=== PATIENT | female | born 1945 | race Caucasian/White ===

== ENCOUNTER → 2017-05-16 | Day surgery (SDC) | payer OTHER ==
[~2017-05-16] MED LIST: DIPRIVAN VIAL 20 ML ONE; EPHEDRINE SULFATE INJ ONE; NS 1000 ML 1,000 ML ONE; XYLOCAINE 2 % (PLAIN) ONE
--- NOTE | 2017-05-16 10:07 | OR.GENERIC ---
Post-Op Note Generic - Post-Op Note Operative Report: Procedure Note May 16, 2017 Pre-Operative Diagnosis: Screening colonoscopy. Post-Operative Diagnosis: 1. Cecal inflammation. 2. Large sigmoid polyp (15 cm). 3. Rectal polyps. 4. Grade I internal hemorrhoids. Procedure: Colonoscopy to cecum with polypectomy (hot snare and cold biopsy forceps). Surgeon: Tony Weiss MD Youth Pastor: Citlalli Deutsch CRNA Specimens: 1. Cecal mucosa. 2. Sigmoid polyp at 15 cm. 3. Rectal polyps. Estimated blood loss: Minimal. Complications: None. Summary: The patient is a 71 year old female who presented for a screening colonoscopy. The risk and benefits of the procedure including difficulty with anesthesia, bleeding, infection, as well as perforation were discussed with the patient. The patient understood these risks and requested the procedure. On May 16, 2017, the patient was brought to the endoscopy suite. A time out was performed verifying the patient and procedure. The patient was placed in a left lateral decubitus position. After satisfactory induction of monitored anesthesia care, a rectal exam was performed. This was normal. Next , an endoscopy was advanced through the anus and directed to the cecum without difficulty. The scope was then withdrawn viewing all mucosal surfaces. The patients prep was adequate. Mild inflammation was noted in the cecum. The mucosa was biopsied using cold biopsy forceps and sent to pathology. No masses or polyps were seen. The ascending, transverse, as well as descending portions of the colon were normal. Specifically, there were no masses, polyps, or diverticula. The scope was withdrawn through the sigmoid portion of the colon. No masses or diverticula were seen. However, a large polyp was noted at 15 cm. This was removed using a snare with cautery. The scope was withdrawn into the rectum. A few polyps were noted. These were removed using cold biopsy forceps and sent to pathology. The scope was retroflexed. Grade I internal hemorrhoids were noted. The scope was straightened and insufflation evacuated. The scope was withdrawn and the procedure terminated. The patient was taken to the recovery room in stable condition. There were no complications.
[2017-05-16 10:20] VITALS: BP 127/75
== END ==
LOC: SURG1 07:22
PROVIDERS: ATTEND Student in an Organized Health Care Education/Training Program
PROC: 0DJD8ZZ Inspection of Lower Intestinal Tract, Via Natural or Artificial Opening Endoscopic (ICD-10-PCS; principal; 2017-05-16 08:30)
PROC: 0DBP8ZX Excision of Rectum, Via Natural or Artificial Opening Endoscopic, Diagnostic (ICD-10-PCS; principal; 2017-05-16 08:30)
PROC: 0DBN8ZX Excision of Sigmoid Colon, Via Natural or Artificial Opening Endoscopic, Diagnostic (ICD-10-PCS; principal; 2017-05-16 08:30)
DX: Z12.11 Encounter for screening for malignant neoplasm of colon (principal); K63.5 Polyp of colon; K62.1 Rectal polyp; K64.0 First degree hemorrhoids; D12.5 Benign neoplasm of sigmoid colon; D12.0 Benign neoplasm of cecum
CPT/HCPCS: 99100; A4217; J2001; J3490

== ENCOUNTER 2024-03-13 10:36 | Inpatient (IN) ==
[2024-03-13 10:52] LABS: ABG BASE EXCESS -0.4 mmol/L (-2.0-2.0); ABG HCO3 22.8 mmol/L (22-26)
[2024-03-13 10:53] LABS: ABG ALLEN TEST POS
--- NOTE | 2024-03-13 10:53 | EKG ---
Test Reason : afib with rvr Blood Pressure : */* mmHG Vent. Rate : 193 BPM Atrial Rate : * BPM P-R Int : * ms QRS Dur : 118 ms QT Int : 234 ms P-R-T Axes : * -88 82 degrees QTc Int : 419 ms Supraventricular tachycardia Left axis deviation Low voltage QRS Right bundle branch block Septal infarct , age undetermined Possible Lateral infarct , age undetermined Abnormal ECG When compared with ECG of 07-FEB-2024 13:17, Vent. rate has increased BY 102 BPM Confirmed by Lance Kwan MD ([id number]) on 03/14/2024 7:52:15 AM Referred By: Confirmed By: Lance Kwan MD
--- NOTE | 2024-03-13 11:07 | EKG ---
Test Reason : chest pain, palpitations Blood Pressure : */* mmHG Vent. Rate : 110 BPM Atrial Rate : * BPM P-R Int : * ms QRS Dur : 92 ms QT Int : 320 ms P-R-T Axes : * -63 98 degrees QTc Int : 433 ms sinus with run of SVT/pvc too Left axis deviation Incomplete right bundle branch block Anterolateral infarct (cited on or before 13-MAR-2024) Abnormal ECG When compared with ECG of 13-MAR-2024 10:49, (Unconfirmed) Vent. rate has decreased BY 83 BPM Incomplete right bundle branch block has replaced Right bundle branch block Questionable change in initial forces of Lateral leads Confirmed by Lance Kwan MD ([id number]) on 03/14/2024 7:49:08 AM Referred By: Confirmed By: Lance Kwan MD
[2024-03-13] MEDS: CARDIZEM INJ 50 MG VIAL IVP ONE (11:11)
[2024-03-13] MEDS: NS 1,000 ML IV 1,000 ML IV SCH (11:22)
[2024-03-13 11:33] LABS: BASOPHILS # (AUTO) 0.1 X10^3/uL (0.0-0.1); BASOPHILS % (AUTO) 0.6 % (0.2-1.0); EOSINOPHILS % (AUTO) 0.1 % (0.9-2.9); HEMATOCRIT 40.3 % (36.0-47.0); LYMPHOCYTES # (AUTO) 0.3 X10^3/uL (1.3-2.9); LYMPHOCYTES % (AUTO) 2.4 % (21.0-51.0); MEAN CORPUSCULAR HEMOGLOBIN 26.2 pg (27.0-34.0); MEAN CORPUSCULAR HGB CONC 32.1 g/dL (33.0-35.0); MEAN CORPUSCULAR VOLUME 81.4 fL (80.0-100.0); MEAN PLATELET VOLUME 8.3 fL (7.4-11.0); MONOCYTES # (AUTO) 0.6 x10^3/uL (0.3-0.8); MONOCYTES % (AUTO) 4.7 % (0.0-13.0); NEUTROPHILS # (AUTO) 12.1 x10^3/uL (2.2-4.8); NEUTROPHILS % (AUTO) 92.2 % (42.0-75.0); PLATELET COUNT 168 X10^3/uL (150.0-450.0); RED BLOOD COUNT 4.95 X10^6/uL (3.5-5.4); RED CELL DISTRIBUTION WIDTH 25.5 % (11.6-16.5); WHITE BLOOD COUNT 13.1 X10^3/uL (3.6-10.0)
[2024-03-13 11:48] LABS: INR 1.33 (0.8-1.3)
[2024-03-13 11:55] LABS: ANISOCYTOSIS 3+; BAND NEUTROPHILS % 3 % (0-10); HYPOCHROMASIA SLIGHT; PLATELET MORPHOLOGY COMMENT NORMAL (NORMAL)
[2024-03-13 11:58] LABS: ALANINE AMINOTRANSFERASE 75 Units/L (12-78); ALBUMIN 3.5 g/dL (3.4-5.0); ALKALINE PHOSPHATASE 257 Units/L (46-116); ASPARTATE AMINO TRANSFERASE 79 Units/L (15-37); BLOOD UREA NITROGEN 10 mg/dL (7-18); CALCIUM 9.1 mg/dL (8.5-10.1); CHLORIDE 101 mmol/L (98-107); COR NA(FOR HYPERGLY) 140 mmol/L (136-145); CREATININE 1.03 mg/dL (0.55-1.02); GLUCOSE 158 mg/dL (65-99); MAGNESIUM 1.5 mg/dL (2.0-2.9); POTASSIUM 4.1 mmol/L (3.5-5.1); SODIUM 139 mmol/L (136-145); TOTAL PROTEIN 7.5 g/dL (6.4-8.2); eGFR NON BLACK RACES 55 (>60)
[2024-03-13] MEDS ORDERED: NS IV PRN (12:12)
[2024-03-13] MEDS ORDERED: MAGNESIUM SULFATE IV PRN (12:12)
[2024-03-13] MEDS: MAGNESIUM SULFATE 50% INJ VIAL 5 G in NS 500 ML IV 500 ML IV ONE (12:37)
[2024-03-13] MEDS ORDERED: OFIRMEV IV 1000 MG VIAL 1,000 MG/100 ML VIAL IV ONE (12:39)
[2024-03-13] MEDS: OFIRMEV IV 1000 MG VIAL 1,000 MG/100 ML VIAL IV PRN (12:40)
[2024-03-13 12:56] LABS: BILIRUBIN,URINE NEGATIVE (NEGATIVE); BLOOD/HEMOGLOBIN,URINE NEGATIVE (NEGATIVE); GLUCOSE, URINE NEGATIVE (NEGATIVE); KETONES,URINE NEGATIVE (NEGATIVE); LEUKOCYTE ESTERASE ,URINE NEGATIVE (NEGATIVE); NITRITES,URINE NEGATIVE (NEGATIVE); PROTEIN,URINE 1+ (NEGATIVE); UROBILINOGEN,URINE NORMAL (NORMAL)
[2024-03-13 13:03] LABS: APPEARANCE,URINE CLEAR (CLEAR); BACTERIA,URINE NEGATIVE /HPF (NEGATIVE); COLOR,URINE STRAW (YELLOW); RBC,URINE 0-2 /HPF (0-3); SQUAMOUS EPITHELIAL CELL,UR FEW /HPF (NEGATIVE)
--- NOTE | 2024-03-13 14:13 | RAD ---
PROCEDURE: Chest X-ray 1 View.HISTORY: Dyspnea.TECHNIQUE: AP view.COMPARISON: February 07, 2024.TECHNICAL QUALITY: Satisfactory.FINDINGS:Normal-sized heart with pacemaker on the left.Mediastinum and hilar regions show no masses or lymphadenopathy.Normal central vascularity.Mild patchy consolidation left upper lung ramirez consistent with pneumonia. No pleural fluid.No acute bony abnormality.IMPRESSION:Mild left upper lobe pneumonia.THIS IS AN ELECTRONICALLY VERIFIED FINAL [id number] 2:06 PM - Electronically signed by Abhishek Larios MD
--- NOTE | 2024-03-13 14:48 | DR.ARRHYTH ---
HPI Time Seen Time Seen by Provider: 03/13/24 10:49 PCP Primary Care Physician: LEO Silverman Complaint Chief Complaint Doctor Comments: 78-year-old female, history of atrial fibrillation, on metoprolol and Eliquis, brought in by EMS for palpitations and dyspnea. Patient states she has been having runs of palpitations for the past 8 hours, became severe just prior to calling EMS, with heart rate above 200. In addition, patient admits to fever and chills, productive cough and dyspnea. Denies other complaints. Chief Complaint:: Pt c/o 2 weeks of intermittent palpitations, exertional shortness of breath, mild substernal chest pressure, productive cough with yellow sputum. Pt denies any fever or chills. Self Treatment fo Chief Complaint: Pt took albuterol neb x 2 around 8am as well as Lopressor 100mg po, Prednisone 10mg, and Lasix 20mg and took Zofran 4mg po @ 0930. COVID-19 Coronavirus risk:travel/contact w/high risk person: No Has patient experienced Coronavirus symptoms: No Source History Provided: Patient Mode of Arrival Mode of Arrival: EMS Timing Onset of Chief Complaint: 02/28/24 Associated Signs and Symptoms Associated Signs and Symptoms: Chest Pain, Dyspnea and Nausea PMH PMH Past Medical History: Yes Past Medical History: Arthritis, COPD, Coronary Artery Disease and Hypertension Past Medical History Comment: afib Past Surgical History: Yes Surgical History: STERILIZATION TECHNICIAN Surgery Past Surgical History Comment: pacemaker Family History History of Family Medical Conditions: Yes Family Medical History: Cancer and Hypertension Social History Does patient currently use any type of tobacco product: No Have you used tobacco products in the last 12 months: No Type of Tobacco Use: Cigarettes Does any household member use tobacco: No Alcohol Use: Occasionally Do you use any recreational Drugs:: No Lives With: Family Lives Where: Home Travel Risk Coronavirus risk:travel/contact w/high risk person: No Has patient experienced Coronavirus symptoms: No Infectious screening In the last 2 months have you had wt loss of >10#?: NO Have you had fever, night sweats or hemotysis?: No Have you traveled outside the country in the last 6 months?: No Isolation: Standard ROS Review of Systems Constitutional: Chills and Fever Respiratoy: Productive Cough Cardiovascular: Palpitations; negative Chest Pain PE Vitals Vital Signs: Temp Pulse Resp BP Pulse Ox O2 Del Method 03/13/24 15:00 91 H 19 91 L 03/13/24 15:00 98/55 03/13/24 15:00 98/55 03/13/24 14:45 90 35 H 91 L 03/13/24 14:31 89 27 H 91 L 03/13/24 14:30 89/51 03/13/24 14:28 86 23 94 L 03/13/24 14:15 88 24 94 L 03/13/24 14:01 93 H 7 L 91 L 03/13/24 14:01 107/52 03/13/24 14:00 93 H 18 93 L 03/13/24 13:45 92 H 92 L 03/13/24 13:30 93 H 91 L 03/13/24 13:30 96/54 03/13/24 13:15 93 H 90 L 03/13/24 13:02 95/53 03/13/24 13:02 92 H 93 L 03/13/24 13:00 92 H 93 L 03/13/24 13:00 94/52 03/13/24 12:45 93 H 94 L 03/13/24 12:31 100 H 49 H 91 L 03/13/24 12:30 97 H 42 H 91 L 03/13/24 12:15 95 H 27 H 93 L 03/13/24 12:00 132/58 03/13/24 12:00 132/58 03/13/24 12:00 132/58 03/13/24 12:00 132/58 03/13/24 12:00 96 H 32 H 93 L 03/13/24 11:45 83 34 H 92 L 03/13/24 11:30 121/58 03/13/24 11:00 80 93 L 03/13/24 11:00 123/60 03/13/24 10:47 170 H 30 H 82 L 03/13/24 10:43 167 H 32 H 80 L 03/13/24 10:40 121/80 03/13/24 10:52 98.1 F 166 H 22 121/80 81 L Room Air General Limitations: No Limitations General Appearance: Alert and In No Apparent Distress Head Head Exam: Normal Inspection Eyes Eyes: Normal Eye exam: Normal Appearance ENT ENT Exam: Normal Exam Neck Neck Exam: Normal Inspection Chest Chest Inspection: Normal Inspection Respiratory Respiratory Exam: Normal Lung Sounds Bilat Cardiovascular Cardiovascular Exam: Tachycardia (HR ~160 bpm upon arrival) and Irregular Rhythm Abdominal Exam Abdominal Exam: Normal Inspection and Normal Bowel Sounds Rectal Rectal Exam: Deferred Extremities Extremities Exam: Normal Inspection Back Back Exam: Normal Inspection Neurologic Neurological Exam: Alert, Oriented X3 and Normal Gait Psychiatric Psychiatric Exam: Normal Affect and Normal Mood Skin Skin Exam: Warm, Dry, Intact and Normal Color ROR Labs Reviewed 03/13/24 11:20 03/13/24 11:20 Laboratory: WBC 13.1 X10^3/uL (3.6-10.0) H 03/13/24 11:20 RBC 4.95 X10^6/uL (3.5-5.4) 03/13/24 11:20 Hgb 13.0 g/dL (12.0-16.0) 03/13/24 11:20 Hct 40.3 % (36.0-47.0) 03/13/24 11:20 MCV 81.4 fL (80.0-100.0) 03/13/24 11:20 MCH 26.2 pg (27.0-34.0) L 03/13/24 11:20 MCHC 32.1 g/dL (33.0-35.0) L 03/13/24 11:20 RDW 25.5 % (11.6-16.5) H 03/13/24 11:20 Plt Count 168 X10^3/uL (150.0-450.0) 03/13/24 11:20 Plt Count Comment Adequate (ADEQUATE) 03/13/24 11:20 MPV 8.3 fL (7.4-11.0) 03/13/24 11:20 Neut % (Auto) 92.2 % (42.0-75.0) H 03/13/24 11:20 Lymph % (Auto) 2.4 % (21.0-51.0) L 03/13/24 11:20 [place] % (Auto) 4.7 % (0.0-13.0) 03/13/24 11:20 Eos % (Auto) 0.1 % (0.9-2.9) L 03/13/24 11:20 Baso % (Auto) 0.6 % (0.2-1.0) 03/13/24 11:20 Neut # (Auto) 12.1 x10^3/uL (2.2-4.8) H 03/13/24 11:20 Lymph # (Auto) 0.3 X10^3/uL (1.3-2.9) L 03/13/24 11:20 [place] # (Auto) 0.6 x10^3/uL (0.3-0.8) 03/13/24 11:20 Eos # (Auto) 0.0 x10^3/uL (0.0-0.2) 03/13/24 11:20 Baso # (Auto) 0.1 X10^3/uL (0.0-0.1) 03/13/24 11:20 Absolute Nucleated RBC 0.2 /100WBC 03/13/24 11:20 Total Counted 100 03/13/24 11:20 Neutrophils % (Manual) 89 % (39-76) H 03/13/24 11:20 Band Neutrophils % 3 % (0-10) 03/13/24 11:20 Lymphocytes % (Manual) 4 % (13-43) L 03/13/24 11:20 Monocytes % (Manual) 4 % (4-9) 03/13/24 11:20 Plt Morphology Comment Normal (NORMAL) 03/13/24 11:20 RBC Morphology Abnormal (NORMAL) A 03/13/24 11:20 Hypochromasia Slight A 03/13/24 11:20 Anisocytosis 3+ A 03/13/24 11:20 PT 16.2 SECONDS (11.8-14.3) 03/13/24 11:20 INR Target Range - 03/13/24 11:20 INR 1.33 (0.8-1.3) H 03/13/24 11:20 APTT 29.3 SECONDS (22.9-36.5) 03/13/24 11:20 PTT Comment - 03/13/24 11:20 Sample Site Rra 03/13/24 10:50 ABG pH 7.460 (7.35-7.45) H 03/13/24 10:50 ABG pCO2 32.0 mmHg (35.0-45.0) L 03/13/24 10:50 ABG pO2 38.0 mmHg (80.0-100.0) L* 03/13/24 10:50 ABG HCO3 22.8 mmol/L (22-26) 03/13/24 10:50 ABG O2 Saturation 76.0 % (90-100) L* 03/13/24 10:50 ABG Base Excess -0.4 mmol/L (-2.0-2.0) 03/13/24 10:50 Eugenio Test Pos 03/13/24 10:50 A-a Gradient 72.0 mmHg 03/13/24 10:50 FiO2 21.0 03/13/24 10:50 Blood Gas Comments Pt ajay well eb 03/13/24 10:50 Sodium 139 mmol/L (136-145) 03/13/24 11:20 Corrected Sodium 140 mmol/L (136-145) 03/13/24 11:20 Potassium 4.1 mmol/L (3.5-5.1) 03/13/24 11:20 Chloride 101 mmol/L (98-107) 03/13/24 11:20 Carbon Dioxide 28.0 mmol/L (21-32) 03/13/24 11:20 BUN 10 mg/dL (7-18) 03/13/24 11:20 Creatinine 1.03 mg/dL (0.55-1.02) H 03/13/24 11:20 Est GFR (MDRD) Af Amer > 60 (>60) 03/13/24 11:20 Est GFR (MDRD) Non-Af 55 (>60) L 03/13/24 11:20 Glucose 158 mg/dL (65-99) H 03/13/24 11:20 Lactic Acid 0.9 mmol/L (0.4-2.0) 03/13/24 13:24 Calcium 9.1 mg/dL (8.5-10.1) 03/13/24 11:20 Corrected Calcium TNP 03/13/24 11:20 Magnesium 1.5 mg/dL (2.0-2.9) L 03/13/24 11:20 Total Bilirubin 1.10 mg/dL (0.2-1.0) H 03/13/24 11:20 AST 79 Units/L (15-37) H 03/13/24 11:20 ALT 75 Units/L (12-78) 03/13/24 11:20 Alkaline Phosphatase 257 Units/L (46-116) H 03/13/24 11:20 Creatine Kinase 48 Units/L (26-192) 03/13/24 13:24 Troponin I High Sens 66.2 ng/L (4.0-60.0) H* 03/13/24 13:24 Total Protein 7.5 g/dL (6.4-8.2) 03/13/24 11:20 Albumin 3.5 g/dL (3.4-5.0) 03/13/24 11:20 Globulin 4.0 g/dL (2.5-4.5) 03/13/24 11:20 Albumin/Globulin Ratio 0.9 Ratio (1.1-2.1) L 03/13/24 11:20 Specimen Type Clean catch urine 03/13/24 12:36 Urine Color Straw (YELLOW) 03/13/24 12:36 Urine Appearance Clear (CLEAR) 03/13/24 12:36 Urine pH 6.0 (5.0 - 8.0) 03/13/24 12:36 Ur Specific [place] 1.010 (1.000-1.030) 03/13/24 12:36 Urine Protein 1+ (NEGATIVE) 03/13/24 12:36 Urine Glucose (UA) Negative (NEGATIVE) 03/13/24 12:36 Urine Ketones Negative (NEGATIVE) 03/13/24 12:36 Urine Blood Negative (NEGATIVE) 03/13/24 12:36 Urine Nitrite Negative (NEGATIVE) 03/13/24 12:36 Urine Bilirubin Negative (NEGATIVE) 03/13/24 12:36 Urine Urobilinogen Normal (NORMAL) 03/13/24 12:36 Ur Leukocyte Esterase Negative (NEGATIVE) 03/13/24 12:36 Urine RBC 0-2 /HPF (0-3) 03/13/24 12:36 Urine WBC 0-2 /HPF (0-5) 03/13/24 12:36 Ur Squamous Epith Cells Few /HPF (NEGATIVE) 03/13/24 12:36 Urine Bacteria Negative /HPF (NEGATIVE) 03/13/24 12:36 Ur Culture Indicated? No/not indicated 03/13/24 12:36 SARS-CoV-2 (PCR) Negative (NEGATIVE) 03/13/24 11:29 Influenza Type A (PCR) Negative (NEGATIVE) 03/13/24 11:29 Influenza Type B (PCR) Negative (NEGATIVE) 03/13/24 11:29 RSV (PCR) Negative (NEGATIVE) 03/13/24 11:29 Opioid Opioid Risk Tool Age (Bakari box if 16-45): No History of Preadolescent Sexual Abuse: No Total: 0 Total Score Risk Category: Low Risk Copyright: [facility] predicting aberrant behaviors Discharge Plan Diagnosis Discharge Problem: Atrial fibrillation, chronic, Hypoxia, Elevated troponin, Hypomagnesemia CAP (community acquired pneumonia) Qualifiers: Laterality: unspecified laterality Qualified Code(s): J18.9 - Pneumonia, unspecified organism Discharge Plan Patient Disposition: 09 ADMITTED INPATIENT Condition: Stable Orders to Discharge Patient Discharge Orders: Discharge (Routine); Ordered 03/13/24 Ordered By: Rigoberto Ceballos
[2024-03-13] MEDS: MOTRIN TAB 400 MG PO PRN (15:34)
[2024-03-13] MEDS: ROCEPHIN VIAL 1 GRAM 1 G in NS 100 ML IV 100 ML IV ONE (15:34)
[2024-03-13] MEDS ORDERED: XOPENEX 1.25 MG/3 ML NEBULE NEB ONE (16:52)
[2024-03-13] MEDS: XOPENEX 1.25 MG/3 ML NEBULE NEB SCH (16:59)
[2024-03-13 17:16] VITALS: BMI 21.2
--- NOTE | 2024-03-13 18:42 | EKG ---
Test Reason : chest pain, palpitations Blood Pressure : */* mmHG Vent. Rate : 82 BPM Atrial Rate : 82 BPM P-R Int : 182 ms QRS Dur : 86 ms QT Int : 492 ms P-R-T Axes : 95 -58 -7 degrees QTc Int : 574 ms Normal sinus rhythm Left axis deviation T wave abnormality, consider anterolateral ischemia Abnormal ECG When compared with ECG of 13-MAR-2024 11:04, (Unconfirmed) Sinus rhythm has replaced Atrial fibrillation Incomplete right bundle branch block is no longer present Criteria for Anterolateral infarct are no longer present Confirmed by Lance Kwan MD ([id number]) on 03/14/2024 7:46:34 AM Referred By: Confirmed By: Lance Kwan MD
[2024-03-13] MEDS: ZITHROMAX INJ 500 MG VIAL 500 MG in D5W 250 ML IV 250 ML IV SCH (18:52)
[2024-03-13] MEDS: PULMICORT NEB TX 0.5 MG NEB SCH (20:06)
[2024-03-13] MEDS: ROBITUSSIN DM PO PRN (20:17)
[2024-03-13] MEDS ORDERED: MOTRIN TAB 800 MG PO ONE (22:38)
[2024-03-13] MEDS: MOTRIN TAB 800 MG PO PRN (22:45)
[2024-03-14 05:18] LABS: HEMOGLOBIN 10.8 g/dL (12.0-16.0)
[2024-03-14 05:24] LABS: BASOPHILS % (AUTO) 0.1 % (0.2-1.0); EOSINOPHILS % (AUTO) 0.1 % (0.9-2.9); HEMATOCRIT 33.1 % (36.0-47.0); LYMPHOCYTES # (AUTO) 0.7 X10^3/uL (1.3-2.9); LYMPHOCYTES % (AUTO) 9.6 % (21.0-51.0); MEAN CORPUSCULAR HEMOGLOBIN 26.5 pg (27.0-34.0); MEAN CORPUSCULAR HGB CONC 32.7 g/dL (33.0-35.0); MEAN CORPUSCULAR VOLUME 80.9 fL (80.0-100.0); MEAN PLATELET VOLUME 8.5 fL (7.4-11.0); MONOCYTES # (AUTO) 0.4 x10^3/uL (0.3-0.8); MONOCYTES % (AUTO) 5.7 % (0.0-13.0); NEUTROPHILS # (AUTO) 6.4 x10^3/uL (2.2-4.8); NEUTROPHILS % (AUTO) 84.5 % (42.0-75.0); PLATELET COUNT 132 X10^3/uL (150.0-450.0); RED BLOOD COUNT 4.09 X10^6/uL (3.5-5.4); RED CELL DISTRIBUTION WIDTH 24.9 % (11.6-16.5); WHITE BLOOD COUNT 7.6 X10^3/uL (3.6-10.0)
[2024-03-14 05:33] LABS: ALANINE AMINOTRANSFERASE 48 Units/L (12-78); ALBUMIN 2.3 g/dL (3.4-5.0); ALKALINE PHOSPHATASE 159 Units/L (46-116); ASPARTATE AMINO TRANSFERASE 45 Units/L (15-37); BLOOD UREA NITROGEN 13 mg/dL (7-18); CALCIUM 7.5 mg/dL (8.5-10.1); CARBON DIOXIDE 27.2 mmol/L (21-32); CHLORIDE 101 mmol/L (98-107); CHOL/HDL RATIO 1.5 (0.0-5.0); CHOLESTEROL 102 mg/dL (0-200); COR CA(FOR HYPOALB) 8.9 mg/dL (8.5-10.1); CREATININE 0.91 mg/dL (0.55-1.02); GLUCOSE 79 mg/dL (65-99); HDL CHOLESTEROL 70 mg/dL (40-60); MAGNESIUM 2.6 mg/dL (2.0-2.9); POTASSIUM 3.6 mmol/L (3.5-5.1); SODIUM 136 mmol/L (136-145); TOTAL PROTEIN 5.5 g/dL (6.4-8.2); TRIGLYCERIDES 44 mg/dL (0-150); eGFR NON BLACK RACES > 60 (>60)
[2024-03-14 06:40] LABS: ANISOCYTOSIS 3+; HYPOCHROMASIA SLIGHT; PLATELET MORPHOLOGY COMMENT NORMAL (NORMAL)
[2024-03-14] MEDS: CONSULT PHARMACY - POTASSIUM & MAGNESIUM XX SCH (07:01)
[2024-03-14] MEDS: K-DUR TAB 20 MEQ PO SCH (08:02)
[2024-03-14] MEDS ORDERED: TOPROL XL PO SCH (09:00)
[2024-03-14] MEDS: ELIQUIS PO SCH (09:19)
[2024-03-14] MEDS: ALPRAZOLAM ODT PO SCH (09:19)
[2024-03-14] MEDS: ULTRAM PO PRN (09:25)
[2024-03-14] MEDS: TOPROL XL PO SCH (09:26)
[2024-03-14] MEDS ORDERED: MILK OF MAGNESIA PO PRN (09:44)
[2024-03-14] MEDS ORDERED: COLACE CAP 100 MG PO PRN (09:44)
[2024-03-14 09:46] LABS: ABG BASE EXCESS -1.6 mmol/L (-2.0-2.0); ABG HCO3 22.9 mmol/L (22-26)
--- NOTE | 2024-03-14 13:03 | DR.H&P ---
H&P History & Physical for Day of: H&P Date: 03/13/24 Chief Complaint Chief Complaint: SOB, WEAKNESS, RAPID HEART BEAT History of Present Illness History of Present Illness: 78-year-old female, history of atrial fibrillation, on metoprolol and Eliquis, brought in by EMS for palpitations and dyspnea. Patient states she has been having runs of palpitations for the past 8 hours, became severe just prior to calling EMS, with heart rate above 200. In addition, patient admits to fever and chills, productive cough and dyspnea. Denies other complaints. Past Medical History Past Medical History: Arthritis, COPD, Coronary Artery Disease and Hypertension Additional Medical History: Denies significant PMHx. States has intermittent issues with back pain and takes OTC meds prn. 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 Family History Family Medical History: Cancer, Coronary Artery Disease and Hypertension Social History Does patient currently use any type of tobacco product: Yes Have you used tobacco products in the last 12 months: Yes Type of Tobacco Use: Cigarettes How many years tobacco product used: 60 Does any household member use tobacco: No Alcohol Use: Rarely Drug Use: None Medications Home Medications: Home Medications Medication Instructions Recorded Confirmed Type metoprolol succinate 50 mg 75 mg PO BID 10/20/21 03/13/24 History tablet,extended release 24 hr albuterol sulfate 90 mcg/actuation 90 mcg inhalation Q6H PRN 07/14/22 03/13/24 History aerosol inhaler alendronate 70 mg tablet 70 mg PO QWEEK 07/14/22 03/13/24 History apixaban 5 mg tablet (Eliquis) 5 mg PO BID 07/14/22 03/13/24 History cilostazol 100 mg tablet 100 mg PO BID 07/14/22 03/13/24 History meloxicam 15 mg tablet 15 mg PO QDAY 07/14/22 03/13/24 History alprazolam 0.25 mg tablet (Xanax) 0.25 mg PO BID 03/13/24 03/13/24 History brimonidine 0.2 % eye drops 1 drp ophthalmic (eye) TID 03/13/24 03/13/24 History calcium 500 mg (as 1 tab PO BID 03/13/24 03/13/24 History carbonate)-vitamin D3 3.125 mcg (125 unit) tablet celecoxib 200 mg capsule 200 mg PO QDAY 03/13/24 03/13/24 History eszopiclone 3 mg tablet 3 mg PO QPM PRN 03/13/24 03/13/24 History furosemide 20 mg tablet (Lasix) See Rx Instructions .Route .COMPLEX 03/13/24 03/13/24 History prednisone 5 mg tablet 5 mg PO BID 03/13/24 03/13/24 History rosuvastatin 20 mg tablet 20 mg PO QPM 03/13/24 03/13/24 History tiotropium bromide 2.5 2 puff inhalation QDAY 03/13/24 03/13/24 History mcg/actuation mist for inhalation (Spiriva Respimat) tramadol 100 mg tablet 100 mg PO Q6H PRN 03/13/24 03/13/24 History latanoprost 0.005 % eye drops 1 drp ophthalmic (eye) TID 03/14/24 03/14/24 History Allergies Allergies Allergy/AdvReac Type Severity Reaction Status Date / Time No Known Drug Allergies Allergy Verified 03/13/24 11:41 Labs 03/14/24 04:34 03/14/24 04:34 Labs: Laboratory WBC 7.6 X10^3/uL (3.6-10.0) 03/14/24 04:34 RBC 4.09 X10^6/uL (3.5-5.4) 03/14/24 04:34 Hgb 10.8 g/dL (12.0-16.0) L D 03/14/24 04:34 Hct 33.1 % (36.0-47.0) L 03/14/24 04:34 MCV 80.9 fL (80.0-100.0) 03/14/24 04:34 MCH 26.5 pg (27.0-34.0) L 03/14/24 04:34 MCHC 32.7 g/dL (33.0-35.0) L 03/14/24 04:34 RDW 24.9 % (11.6-16.5) H 03/14/24 04:34 Plt Count 132 X10^3/uL (150.0-450.0) L 03/14/24 04:34 Plt Count Comment Decreased (ADEQUATE) A 03/14/24 04:34 MPV 8.5 fL (7.4-11.0) 03/14/24 04:34 Neut % (Auto) 84.5 % (42.0-75.0) H 03/14/24 04:34 Lymph % (Auto) 9.6 % (21.0-51.0) L 03/14/24 04:34 [place] % (Auto) 5.7 % (0.0-13.0) 03/14/24 04:34 Eos % (Auto) 0.1 % (0.9-2.9) L 03/14/24 04:34 Baso % (Auto) 0.1 % (0.2-1.0) L 03/14/24 04:34 Neut # (Auto) 6.4 x10^3/uL (2.2-4.8) H 03/14/24 04:34 Lymph # (Auto) 0.7 X10^3/uL (1.3-2.9) L 03/14/24 04:34 [place] # (Auto) 0.4 x10^3/uL (0.3-0.8) 03/14/24 04:34 Eos # (Auto) 0.0 x10^3/uL (0.0-0.2) 03/14/24 04:34 Baso # (Auto) 0.0 X10^3/uL (0.0-0.1) 03/14/24 04:34 Absolute Nucleated RBC 0.1 /100WBC 03/14/24 04:34 Total Counted 100 03/13/24 11:20 Neutrophils % (Manual) 89 % (39-76) H 03/13/24 11:20 Band Neutrophils % 3 % (0-10) 03/13/24 11:20 Lymphocytes % (Manual) 4 % (13-43) L 03/13/24 11:20 Monocytes % (Manual) 4 % (4-9) 03/13/24 11:20 Plt Morphology Comment Normal (NORMAL) 03/14/24 04:34 RBC Morphology Abnormal (NORMAL) A 03/14/24 04:34 Hypochromasia Slight A 03/14/24 04:34 Anisocytosis 3+ A 03/14/24 04:34 PT 16.2 SECONDS (11.8-14.3) 03/13/24 11:20 INR Target Range - 03/13/24 11:20 INR 1.33 (0.8-1.3) H 03/13/24 11:20 APTT 29.3 SECONDS (22.9-36.5) 03/13/24 11:20 PTT Comment - 03/13/24 11:20 Sample Site Rbra 03/14/24 09:44 ABG pH 7.400 (7.35-7.45) 03/14/24 09:44 ABG pCO2 37.0 mmHg (35.0-45.0) 03/14/24 09:44 ABG pO2 55.0 mmHg (80.0-100.0) L 03/14/24 09:44 ABG HCO3 22.9 mmol/L (22-26) 03/14/24 09:44 ABG O2 Saturation 88.0 % (90-100) L 03/14/24 09:44 ABG Base Excess -1.6 mmol/L (-2.0-2.0) 03/14/24 09:44 Eugenio Test N/a 03/14/24 09:44 A-a Gradient 48.0 mmHg 03/14/24 09:44 FiO2 21.0 03/14/24 09:44 Blood Gas Comments Pt ajay well elj cdn 03/14/24 09:44 Sodium 136 mmol/L (136-145) 03/14/24 04:34 Corrected Sodium TNP 03/14/24 04:34 Potassium 3.6 mmol/L (3.5-5.1) 03/14/24 04:34 Chloride 101 mmol/L (98-107) 03/14/24 04:34 Carbon Dioxide 27.2 mmol/L (21-32) 03/14/24 04:34 BUN 13 mg/dL (7-18) 03/14/24 04:34 Creatinine 0.91 mg/dL (0.55-1.02) 03/14/24 04:34 Est GFR (MDRD) Af Amer > 60 (>60) 03/14/24 04:34 Est GFR (MDRD) Non-Af > 60 (>60) 03/14/24 04:34 Glucose 79 mg/dL (65-99) 03/14/24 04:34 Lactic Acid 0.9 mmol/L (0.4-2.0) 03/13/24 13:24 Calcium 7.5 mg/dL (8.5-10.1) L 03/14/24 04:34 Corrected Calcium 8.9 mg/dL (8.5-10.1) 03/14/24 04:34 Magnesium 2.6 mg/dL (2.0-2.9) 03/14/24 04:34 Total Bilirubin 1.00 mg/dL (0.2-1.0) 03/14/24 04:34 AST 45 Units/L (15-37) H 03/14/24 04:34 ALT 48 Units/L (12-78) 03/14/24 04:34 Alkaline Phosphatase 159 Units/L (46-116) H 03/14/24 04:34 Creatine Kinase 48 Units/L (26-192) 03/13/24 13:24 Troponin I High Sens 66.2 ng/L (4.0-60.0) H* 03/13/24 13:24 Total Protein 5.5 g/dL (6.4-8.2) L 03/14/24 04:34 Albumin 2.3 g/dL (3.4-5.0) L 03/14/24 04:34 Globulin 3.2 g/dL (2.5-4.5) 03/14/24 04:34 Albumin/Globulin Ratio 0.7 Ratio (1.1-2.1) L 03/14/24 04:34 Triglycerides 44 mg/dL (0-150) 03/14/24 04:34 Cholesterol 102 mg/dL (0-200) 03/14/24 04:34 LDL Cholesterol, Calc 23 mg/dL (0-100) 03/14/24 04:34 HDL Cholesterol 70 mg/dL (40-60) H 03/14/24 04:34 Cholesterol/HDL Ratio 1.5 (0.0-5.0) 03/14/24 04:34 Specimen Type Clean catch urine 03/13/24 12:36 Urine Color Straw (YELLOW) 03/13/24 12:36 Urine Appearance Clear (CLEAR) 03/13/24 12:36 Urine pH 6.0 (5.0 - 8.0) 03/13/24 12:36 Ur Specific [place] 1.010 (1.000-1.030) 03/13/24 12:36 Urine Protein 1+ (NEGATIVE) 03/13/24 12:36 Urine Glucose (UA) Negative (NEGATIVE) 03/13/24 12:36 Urine Ketones Negative (NEGATIVE) 03/13/24 12:36 Urine Blood Negative (NEGATIVE) 03/13/24 12:36 Urine Nitrite Negative (NEGATIVE) 03/13/24 12:36 Urine Bilirubin Negative (NEGATIVE) 03/13/24 12:36 Urine Urobilinogen Normal (NORMAL) 03/13/24 12:36 Ur Leukocyte Esterase Negative (NEGATIVE) 03/13/24 12:36 Urine RBC 0-2 /HPF (0-3) 03/13/24 12:36 Urine WBC 0-2 /HPF (0-5) 03/13/24 12:36 Ur Squamous Epith Cells Few /HPF (NEGATIVE) 03/13/24 12:36 Urine Bacteria Negative /HPF (NEGATIVE) 03/13/24 12:36 Ur Culture Indicated? No/not indicated 03/13/24 12:36 SARS-CoV-2 (PCR) Negative (NEGATIVE) 03/13/24 11:29 Influenza Type A (PCR) Negative (NEGATIVE) 03/13/24 11:29 Influenza Type B (PCR) Negative (NEGATIVE) 03/13/24 11:29 RSV (PCR) Negative (NEGATIVE) 03/13/24 11:29 Review of Systems Constitutional: Fever, Chills, Sweats and Weakness Eyes: No Symptoms Reported ENT: Nose Congestion and Throat Pain Respiratory: Cough, Shortness of Breath, SOB with Excertion, Sputum and Wheezing Cardiovascular: Palpitations Gastrointestinal: No Symptoms Reported Genitourinary: No Symptoms Reported Musculoskeletal: Leg Pain Skin: No Symptoms Reported Neurological: No Symptoms Reported Physical Exam Vital Signs: Vital Signs Temperature 98.0 F Pulse Rate [Apical] 91 Pulse Rate [Apical] 87 Pulse Rate [Apical] 89 Pulse Rate [Apical] 85 Pulse Rate [Apical] 87 Pulse Rate [Apical] 81 Pulse Rate [Apical] 84 Respiratory Rate 18 Respiratory Rate 16 Respiratory Rate 16 Respiratory Rate 20 Respiratory Rate 18 Respiratory Rate 20 Respiratory Rate 22 Respiratory Rate 20 Respiratory Rate 16 Respiratory Rate 20 Respiratory Rate 20 Blood Pressure [Right Arm] 94/58 Blood Pressure [Right Arm] 93/59 Blood Pressure [Right Arm] 91/59 Blood Pressure [Right Arm] 115/62 Blood Pressure [Right Arm] 108/57 Blood Pressure [Right Arm] 97/54 Blood Pressure [Right Arm] 105/56 O2 Sat by Pulse Oximetry 98 O2 Sat by Pulse Oximetry 95 O2 Sat by Pulse Oximetry 92 O2 Sat by Pulse Oximetry 96 O2 Sat by Pulse Oximetry 96 O2 Sat by Pulse Oximetry 97 O2 Sat by Pulse Oximetry 98 Oriented: Normal Eyes: Normal Ear: Normal Nose: Injected Throat: Dry Respiratory: Diminished Throughout Cardiovascular: Tachycardia and Irregular Auscultation: Bowel Sounds: Normal Palpation: Normal Tenderness: Normal Skin: Decreased Turgur Psychiatric: Anxiety Mood Description: Anxious Affect: Anxious Speech Pattern: Clear and Appropriate Assessment/Plan (1) Atrial fibrillation with RVR: Status: Acute Plan: ADMIT, CARDIAC MONITORING, IV ATBX, STRICT I&OS ABG ON ADMISSION, RESP THERAPY SUPPLEMENTAL O2 CXR ON ADMISSION, VERIFY HOME MEDICATIONS PT GIVEN AMIODARONE PER EMS AND DILTIAZEM IV IN ER AND CONVERTED (2) Acute exacerbation of chronic obstructive pulmonary disease: Status: Acute (3) Hypoxemia: Status: Acute
[2024-03-14] MEDS: ALPHAGAN 0.2% OPHTH SOLN OP SCH (13:05)
--- NOTE | 2024-03-14 13:11 | PCM.PROG ---
Progress Note Progress Note for Day of Date of Exam: 03/14/24 Subjective Subjective: PT IS 78 WF, ER ADMISSION WITH COPD EXACERBATION AND HYPOXIA, AFIB WITH RVR. PT HAS CONVERTED TO A NSR SINCE ADMISSION. PT IS CURRENTLY ON METOPROLOL AT HOME, WHICH WE RESUMED. PT IS ON ELIQUIS AT HOME ALSO AND IT HAS BEEN RESUMED. PT WAS HYPOXIC ON ADMISSION AND REPEAT ABG ORDERED FOR THIS AM. PT IS ON 3L/NC AT 96%. PT CONTINUES WITH SEVERE COUGHING SPELLS WITH MUCOUS PRODUCTION. PT HAS REPEAT CXR ORDERED FOR THIS AM. PT CO SEVERE LEG PAIN, HX OF PAD BUT THIS FEELS DIFFERENT PER PT. PLAN TO RESUME PLETAL AND ELECTROLYTE REPLACEMENT THERAPY. Past Medical Family Social History Allergies: Allergies No Known Drug Allergies Allergy (Verified 03/13/24 11:41) Vital Signs and I&O's Vital Signs: Vital Signs Temperature 98.0 F Pulse Rate [Apical] 91 Pulse Rate [Apical] 87 Pulse Rate [Apical] 89 Pulse Rate [Apical] 85 Pulse Rate [Apical] 87 Pulse Rate [Apical] 81 Pulse Rate [Apical] 84 Respiratory Rate 18 Respiratory Rate 16 Respiratory Rate 16 Respiratory Rate 20 Respiratory Rate 18 Respiratory Rate 20 Respiratory Rate 22 Respiratory Rate 20 Respiratory Rate 16 Respiratory Rate 20 Respiratory Rate 20 Blood Pressure [Right Arm] 94/58 Blood Pressure [Right Arm] 93/59 Blood Pressure [Right Arm] 91/59 Blood Pressure [Right Arm] 115/62 Blood Pressure [Right Arm] 108/57 Blood Pressure [Right Arm] 97/54 Blood Pressure [Right Arm] 105/56 O2 Sat by Pulse Oximetry 98 O2 Sat by Pulse Oximetry 95 O2 Sat by Pulse Oximetry 92 O2 Sat by Pulse Oximetry 96 O2 Sat by Pulse Oximetry 96 O2 Sat by Pulse Oximetry 97 O2 Sat by Pulse Oximetry 98 Intake and Output: Intake & Output 03/12/24 03/13/24 03/14/24 03/15/24 11:59 11:59 11:59 11:59 Intake Total 1754 / 1754 Balance 1754 / 1754 Physical Exam Oriented: Normal Eyes: Normal Ear: Normal Nose: Injected Throat: Dry Respiratory: Diminished Cardiovascular: Normal Auscultation: Bowel Sounds: Normal Tenderness: Normal Skin: Decreased Turgur Psychiatric: Anxiety Mood Description: Anxious Affect: Anxious Speech Pattern: Clear and Appropriate Laboratory and Diagnostics 03/14/24 04:34 03/14/24 04:34 Labs: Laboratory WBC 7.6 X10^3/uL (3.6-10.0) 03/14/24 04:34 RBC 4.09 X10^6/uL (3.5-5.4) 03/14/24 04:34 Hgb 10.8 g/dL (12.0-16.0) L D 03/14/24 04:34 Hct 33.1 % (36.0-47.0) L 03/14/24 04:34 MCV 80.9 fL (80.0-100.0) 03/14/24 04:34 MCH 26.5 pg (27.0-34.0) L 03/14/24 04:34 MCHC 32.7 g/dL (33.0-35.0) L 03/14/24 04:34 RDW 24.9 % (11.6-16.5) H 03/14/24 04:34 Plt Count 132 X10^3/uL (150.0-450.0) L 03/14/24 04:34 Plt Count Comment Decreased (ADEQUATE) A 03/14/24 04:34 MPV 8.5 fL (7.4-11.0) 03/14/24 04:34 Neut % (Auto) 84.5 % (42.0-75.0) H 03/14/24 04:34 Lymph % (Auto) 9.6 % (21.0-51.0) L 03/14/24 04:34 [place] % (Auto) 5.7 % (0.0-13.0) 03/14/24 04:34 Eos % (Auto) 0.1 % (0.9-2.9) L 03/14/24 04:34 Baso % (Auto) 0.1 % (0.2-1.0) L 03/14/24 04:34 Neut # (Auto) 6.4 x10^3/uL (2.2-4.8) H 03/14/24 04:34 Lymph # (Auto) 0.7 X10^3/uL (1.3-2.9) L 03/14/24 04:34 [place] # (Auto) 0.4 x10^3/uL (0.3-0.8) 03/14/24 04:34 Eos # (Auto) 0.0 x10^3/uL (0.0-0.2) 03/14/24 04:34 Baso # (Auto) 0.0 X10^3/uL (0.0-0.1) 03/14/24 04:34 Absolute Nucleated RBC 0.1 /100WBC 03/14/24 04:34 Total Counted 100 03/13/24 11:20 Neutrophils % (Manual) 89 % (39-76) H 03/13/24 11:20 Band Neutrophils % 3 % (0-10) 03/13/24 11:20 Lymphocytes % (Manual) 4 % (13-43) L 03/13/24 11:20 Monocytes % (Manual) 4 % (4-9) 03/13/24 11:20 Plt Morphology Comment Normal (NORMAL) 03/14/24 04:34 RBC Morphology Abnormal (NORMAL) A 03/14/24 04:34 Hypochromasia Slight A 03/14/24 04:34 Anisocytosis 3+ A 03/14/24 04:34 PT 16.2 SECONDS (11.8-14.3) 03/13/24 11:20 INR Target Range - 03/13/24 11:20 INR 1.33 (0.8-1.3) H 03/13/24 11:20 APTT 29.3 SECONDS (22.9-36.5) 03/13/24 11:20 PTT Comment - 03/13/24 11:20 Sample Site [facility] 03/14/24 09:44 ABG pH 7.400 (7.35-7.45) 03/14/24 09:44 ABG pCO2 37.0 mmHg (35.0-45.0) 03/14/24 09:44 ABG pO2 55.0 mmHg (80.0-100.0) L 03/14/24 09:44 ABG HCO3 22.9 mmol/L (22-26) 03/14/24 09:44 ABG O2 Saturation 88.0 % (90-100) L 03/14/24 09:44 ABG Base Excess -1.6 mmol/L (-2.0-2.0) 03/14/24 09:44 Eugenio Test N/a 03/14/24 09:44 A-a Gradient 48.0 mmHg 03/14/24 09:44 FiO2 21.0 03/14/24 09:44 Blood Gas Comments Pt ajay well elj cdn 03/14/24 09:44 Sodium 136 mmol/L (136-145) 03/14/24 04:34 Corrected Sodium TNP 03/14/24 04:34 Potassium 3.6 mmol/L (3.5-5.1) 03/14/24 04:34 Chloride 101 mmol/L (98-107) 03/14/24 04:34 Carbon Dioxide 27.2 mmol/L (21-32) 03/14/24 04:34 BUN 13 mg/dL (7-18) 03/14/24 04:34 Creatinine 0.91 mg/dL (0.55-1.02) 03/14/24 04:34 Est GFR (MDRD) Af Amer > 60 (>60) 03/14/24 04:34 Est GFR (MDRD) Non-Af > 60 (>60) 03/14/24 04:34 Glucose 79 mg/dL (65-99) 03/14/24 04:34 Lactic Acid 0.9 mmol/L (0.4-2.0) 03/13/24 13:24 Calcium 7.5 mg/dL (8.5-10.1) L 03/14/24 04:34 Corrected Calcium 8.9 mg/dL (8.5-10.1) 03/14/24 04:34 Magnesium 2.6 mg/dL (2.0-2.9) 03/14/24 04:34 Total Bilirubin 1.00 mg/dL (0.2-1.0) 03/14/24 04:34 AST 45 Units/L (15-37) H 03/14/24 04:34 ALT 48 Units/L (12-78) 03/14/24 04:34 Alkaline Phosphatase 159 Units/L (46-116) H 03/14/24 04:34 Creatine Kinase 48 Units/L (26-192) 03/13/24 13:24 Troponin I High Sens 66.2 ng/L (4.0-60.0) H* 03/13/24 13:24 Total Protein 5.5 g/dL (6.4-8.2) L 03/14/24 04:34 Albumin 2.3 g/dL (3.4-5.0) L 03/14/24 04:34 Globulin 3.2 g/dL (2.5-4.5) 03/14/24 04:34 Albumin/Globulin Ratio 0.7 Ratio (1.1-2.1) L 03/14/24 04:34 Triglycerides 44 mg/dL (0-150) 03/14/24 04:34 Cholesterol 102 mg/dL (0-200) 03/14/24 04:34 LDL Cholesterol, Calc 23 mg/dL (0-100) 03/14/24 04:34 HDL Cholesterol 70 mg/dL (40-60) H 03/14/24 04:34 Cholesterol/HDL Ratio 1.5 (0.0-5.0) 03/14/24 04:34 Specimen Type Clean catch urine 03/13/24 12:36 Urine Color Straw (YELLOW) 03/13/24 12:36 Urine Appearance Clear (CLEAR) 03/13/24 12:36 Urine pH 6.0 (5.0 - 8.0) 03/13/24 12:36 Ur Specific [place] 1.010 (1.000-1.030) 03/13/24 12:36 Urine Protein 1+ (NEGATIVE) 03/13/24 12:36 Urine Glucose (UA) Negative (NEGATIVE) 03/13/24 12:36 Urine Ketones Negative (NEGATIVE) 03/13/24 12:36 Urine Blood Negative (NEGATIVE) 03/13/24 12:36 Urine Nitrite Negative (NEGATIVE) 03/13/24 12:36 Urine Bilirubin Negative (NEGATIVE) 03/13/24 12:36 Urine Urobilinogen Normal (NORMAL) 03/13/24 12:36 Ur Leukocyte Esterase Negative (NEGATIVE) 03/13/24 12:36 Urine RBC 0-2 /HPF (0-3) 03/13/24 12:36 Urine WBC 0-2 /HPF (0-5) 03/13/24 12:36 Ur Squamous Epith Cells Few /HPF (NEGATIVE) 03/13/24 12:36 Urine Bacteria Negative /HPF (NEGATIVE) 03/13/24 12:36 Ur Culture Indicated? No/not indicated 03/13/24 12:36 SARS-CoV-2 (PCR) Negative (NEGATIVE) 03/13/24 11:29 Influenza Type A (PCR) Negative (NEGATIVE) 03/13/24 11:29 Influenza Type B (PCR) Negative (NEGATIVE) 03/13/24 11:29 RSV (PCR) Negative (NEGATIVE) 03/13/24 11:29 Plan (1) Atrial fibrillation with RVR: Status: Acute Plan: CARDIAC MONITORING, IV ATBX, STRICT I&OS ABG REPEAT , RESP THERAPY SUPPLEMENTAL O2 CXR, VERIFY HOME MEDICATION, CONTINUE ELIQUIS AND METOPROLOL PT GIVEN AMIODARONE PER EMS AND DILTIAZEM IV IN ER AND CONVERTED (2) Acute exacerbation of chronic obstructive pulmonary disease: Status: Acute (3) Hypoxemia: Status: Acute
[2024-03-14] MEDS: PLETAL PO SCH (13:45)
[2024-03-14] MEDS: CORDARONE TAB 200 MG PO SCH (16:25)
[2024-03-14] MEDS: XALATAN RIGHTEYE SCH (20:21)
[2024-03-14] MEDS: CRESTOR TAB 10 MG PO SCH (20:21)
[2024-03-14] MEDS ORDERED: XALATAN RIGHTEYE SCH (22:00)
[2024-03-15 05:35] LABS: BASOPHILS % (AUTO) 0.2 % (0.2-1.0); EOSINOPHILS # (AUTO) 0.1 x10^3/uL (0.0-0.2); EOSINOPHILS % (AUTO) 1.1 % (0.9-2.9); HEMATOCRIT 28.5 % (36.0-47.0); HEMOGLOBIN 9.4 g/dL (12.0-16.0); LYMPHOCYTES # (AUTO) 0.6 X10^3/uL (1.3-2.9); LYMPHOCYTES % (AUTO) 6.1 % (21.0-51.0); MEAN CORPUSCULAR HEMOGLOBIN 26.6 pg (27.0-34.0); MEAN CORPUSCULAR VOLUME 80.7 fL (80.0-100.0); MEAN PLATELET VOLUME 8.2 fL (7.4-11.0); MONOCYTES # (AUTO) 0.6 x10^3/uL (0.3-0.8); MONOCYTES % (AUTO) 6.8 % (0.0-13.0); NEUTROPHILS % (AUTO) 85.8 % (42.0-75.0); PLATELET COUNT 144 X10^3/uL (150.0-450.0); RED BLOOD COUNT 3.53 X10^6/uL (3.5-5.4); RED CELL DISTRIBUTION WIDTH 24.8 % (11.6-16.5); WHITE BLOOD COUNT 9.3 X10^3/uL (3.6-10.0)
[2024-03-15 05:47] LABS: ALANINE AMINOTRANSFERASE 42 Units/L (12-78); ALBUMIN 2.1 g/dL (3.4-5.0); ALKALINE PHOSPHATASE 138 Units/L (46-116); ASPARTATE AMINO TRANSFERASE 37 Units/L (15-37); BLOOD UREA NITROGEN 15 mg/dL (7-18); CALCIUM 7.4 mg/dL (8.5-10.1); CARBON DIOXIDE 27.9 mmol/L (21-32); CHLORIDE 103 mmol/L (98-107); COR CA(FOR HYPOALB) 8.9 mg/dL (8.5-10.1); GLUCOSE 76 mg/dL (65-99); POTASSIUM 3.9 mmol/L (3.5-5.1); SODIUM 135 mmol/L (136-145); TOTAL PROTEIN 5.1 g/dL (6.4-8.2); eGFR NON BLACK RACES > 60 (>60)
[2024-03-15 07:24] LABS: ANISOCYTOSIS 3+; HYPOCHROMASIA SLIGHT; PLATELET MORPHOLOGY COMMENT NORMAL (NORMAL)
[2024-03-15] MEDS: LASIX PO SCH (08:38)
--- NOTE | 2024-03-15 08:55 | RAD ---
EXAM:Portable AP chestHISTORY:CHFCOMPARISON:03/13/2024 r.br.[email or web address] Vascular congestion is present with significant progression of left upper lobe consolidation. No pleural fluid is seen.IMPRESSION:Increasing left upper lobe pneumonia.THIS IS AN ELECTRONICALLY VERIFIED FINAL [id number] 8:52 AM - Electronically signed by Tucker Arvizu MD
[2024-03-15] MEDS ORDERED: NS 250 ML IV 25 ML IV PRN (11:45)
[2024-03-15] MEDS ORDERED: ALPRAZOLAM ODT PO PRN (11:45)
--- NOTE | 2024-03-15 11:53 | PCM.PROG ---
Progress Note Progress Note for Day of Date of Exam: 03/15/24 Subjective Subjective: Patient seen at bedside, no acute events overnight. She is still having a lot of cough. She remains on 3L NC. She is admitted for COPD exacerbation, pneumonia and Afib RVR. Patient's BP was noted to be low this morning, SBP 90s. Her last BP was 94/52, metoprolol succinate was held. She is currently on Azithromycin. Labs/imaging reviewed: -WBC 9.3 Hgb 9.4 K 3.9 BUN/Cr 15/0.8 -Sputum Cx pending -CXR: progression of KLEVER pneumonia Plan: Continue hydration, monitor BP. Decrease metoprolol succinate to 25 mg BID. Hold lasix and other anti-hypertensives. Wean O2 as tolerated. Continue nebs and IS. Continue azithromycin, add zosyn. Follow pending cultures. Will give one dose of Solumedrol. Continue home medications. Ambulate prn. Monitor AM labs/imaging. Past Medical Family Social History Allergies: Allergies No Known Drug Allergies Allergy (Verified 03/13/24 11:41) Vital Signs and I&O's Vital Signs: Vital Signs Temperature 97.9 F Temperature 98.0 F Pulse Rate [Apical] 97 Pulse Rate [Apical] 102 Respiratory Rate 18 Respiratory Rate 16 Respiratory Rate 21 Blood Pressure [Right Arm] 112/54 Blood Pressure [Right Arm] 115/57 Blood Pressure [Right Arm] 83/49 O2 Sat by Pulse Oximetry 97 O2 Sat by Pulse Oximetry 97 Intake and Output: Intake & Output 03/12/24 03/13/24 03/14/24 03/15/24 23:59 23:59 23:59 23:59 Intake Total 987 / 987 2212 / 2212 500 / 500 Balance 987 / 987 2212 / 2212 500 / 500 Physical Exam Oriented: Normal Eyes: Normal Ear: Normal Nose: Normal Throat: Dry Respiratory: Generalized and Diminished Cardiovascular: Normal Auscultation: Bowel Sounds: Normal Palpation: Normal Tenderness: Normal Skin: Decreased Turgur Psychiatric: Normal Mood Description: Calm Affect: Normal Speech Pattern: Clear and Appropriate Laboratory and Diagnostics 03/15/24 05:12 03/15/24 05:12 Labs: 03/14/24 16:45 Sputum - Expectorated Sputum Sputum Culture - Preliminary 03/14/24 16:45 Sputum - Expectorated Sputum - Final Laboratory WBC 9.3 X10^3/uL (3.6-10.0) 03/15/24 05:12 RBC 3.53 X10^6/uL (3.5-5.4) 03/15/24 05:12 Hgb 9.4 g/dL (12.0-16.0) L 03/15/24 05:12 Hct 28.5 % (36.0-47.0) L 03/15/24 05:12 MCV 80.7 fL (80.0-100.0) 03/15/24 05:12 MCH 26.6 pg (27.0-34.0) L 03/15/24 05:12 MCHC 33.0 g/dL (33.0-35.0) 03/15/24 05:12 RDW 24.8 % (11.6-16.5) H 03/15/24 05:12 Plt Count 144 X10^3/uL (150.0-450.0) L 03/15/24 05:12 Plt Count Comment Decreased (ADEQUATE) A 03/15/24 05:12 MPV 8.2 fL (7.4-11.0) 03/15/24 05:12 Neut % (Auto) 85.8 % (42.0-75.0) H 03/15/24 05:12 Lymph % (Auto) 6.1 % (21.0-51.0) L 03/15/24 05:12 [place] % (Auto) 6.8 % (0.0-13.0) 03/15/24 05:12 Eos % (Auto) 1.1 % (0.9-2.9) 03/15/24 05:12 Baso % (Auto) 0.2 % (0.2-1.0) 03/15/24 05:12 Neut # (Auto) 8.0 x10^3/uL (2.2-4.8) H 03/15/24 05:12 Lymph # (Auto) 0.6 X10^3/uL (1.3-2.9) L 03/15/24 05:12 [place] # (Auto) 0.6 x10^3/uL (0.3-0.8) 03/15/24 05:12 Eos # (Auto) 0.1 x10^3/uL (0.0-0.2) 03/15/24 05:12 Baso # (Auto) 0.0 X10^3/uL (0.0-0.1) 03/15/24 05:12 Absolute Nucleated RBC 0.0 /100WBC 03/15/24 05:12 Total Counted 100 03/13/24 11:20 Neutrophils % (Manual) 89 % (39-76) H 03/13/24 11:20 Band Neutrophils % 3 % (0-10) 03/13/24 11:20 Lymphocytes % (Manual) 4 % (13-43) L 03/13/24 11:20 Monocytes % (Manual) 4 % (4-9) 03/13/24 11:20 Plt Morphology Comment Normal (NORMAL) 03/15/24 05:12 RBC Morphology Abnormal (NORMAL) A 03/15/24 05:12 Hypochromasia Slight A 03/15/24 05:12 Anisocytosis 3+ A 03/15/24 05:12 PT 16.2 SECONDS (11.8-14.3) 03/13/24 11:20 INR Target Range - 03/13/24 11:20 INR 1.33 (0.8-1.3) H 03/13/24 11:20 APTT 29.3 SECONDS (22.9-36.5) 03/13/24 11:20 PTT Comment - 03/13/24 11:20 Sample Site [facility] 03/14/24 09:44 ABG pH 7.400 (7.35-7.45) 03/14/24 09:44 ABG pCO2 37.0 mmHg (35.0-45.0) 03/14/24 09:44 ABG pO2 55.0 mmHg (80.0-100.0) L 03/14/24 09:44 ABG HCO3 22.9 mmol/L (22-26) 03/14/24 09:44 ABG O2 Saturation 88.0 % (90-100) L 03/14/24 09:44 ABG Base Excess -1.6 mmol/L (-2.0-2.0) 03/14/24 09:44 Eugenio Test N/a 03/14/24 09:44 A-a Gradient 48.0 mmHg 03/14/24 09:44 FiO2 21.0 03/14/24 09:44 Blood Gas Comments Pt ajay well elj cdn 03/14/24 09:44 Sodium 135 mmol/L (136-145) L 03/15/24 05:12 Corrected Sodium TNP 03/15/24 05:12 Potassium 3.9 mmol/L (3.5-5.1) 03/15/24 05:12 Chloride 103 mmol/L (98-107) 03/15/24 05:12 Carbon Dioxide 27.9 mmol/L (21-32) 03/15/24 05:12 BUN 15 mg/dL (7-18) 03/15/24 05:12 Creatinine 0.80 mg/dL (0.55-1.02) 03/15/24 05:12 Est GFR (MDRD) Af Amer > 60 (>60) 03/15/24 05:12 Est GFR (MDRD) Non-Af > 60 (>60) 03/15/24 05:12 Glucose 76 mg/dL (65-99) 03/15/24 05:12 Lactic Acid 0.9 mmol/L (0.4-2.0) 03/13/24 13:24 Calcium 7.4 mg/dL (8.5-10.1) L 03/15/24 05:12 Corrected Calcium 8.9 mg/dL (8.5-10.1) 03/15/24 05:12 Magnesium 2.6 mg/dL (2.0-2.9) 03/14/24 04:34 Total Bilirubin 0.80 mg/dL (0.2-1.0) 03/15/24 05:12 AST 37 Units/L (15-37) 03/15/24 05:12 ALT 42 Units/L (12-78) 03/15/24 05:12 Alkaline Phosphatase 138 Units/L (46-116) H 03/15/24 05:12 Creatine Kinase 48 Units/L (26-192) 03/13/24 13:24 Troponin I High Sens 66.2 ng/L (4.0-60.0) H* 03/13/24 13:24 B-Natriuretic Peptide 184 pg/mL (0-79) H 03/15/24 05:12 Total Protein 5.1 g/dL (6.4-8.2) L 03/15/24 05:12 Albumin 2.1 g/dL (3.4-5.0) L 03/15/24 05:12 Globulin 3.0 g/dL (2.5-4.5) 03/15/24 05:12 Albumin/Globulin Ratio 0.7 Ratio (1.1-2.1) L 03/15/24 05:12 Triglycerides 44 mg/dL (0-150) 03/14/24 04:34 Cholesterol 102 mg/dL (0-200) 03/14/24 04:34 LDL Cholesterol, Calc 23 mg/dL (0-100) 03/14/24 04:34 HDL Cholesterol 70 mg/dL (40-60) H 03/14/24 04:34 Cholesterol/HDL Ratio 1.5 (0.0-5.0) 03/14/24 04:34 Specimen Type Clean catch urine 03/13/24 12:36 Urine Color Straw (YELLOW) 03/13/24 12:36 Urine Appearance Clear (CLEAR) 03/13/24 12:36 Urine pH 6.0 (5.0 - 8.0) 03/13/24 12:36 Ur Specific [place] 1.010 (1.000-1.030) 03/13/24 12:36 Urine Protein 1+ (NEGATIVE) 03/13/24 12:36 Urine Glucose (UA) Negative (NEGATIVE) 03/13/24 12:36 Urine Ketones Negative (NEGATIVE) 03/13/24 12:36 Urine Blood Negative (NEGATIVE) 03/13/24 12:36 Urine Nitrite Negative (NEGATIVE) 03/13/24 12:36 Urine Bilirubin Negative (NEGATIVE) 03/13/24 12:36 Urine Urobilinogen Normal (NORMAL) 03/13/24 12:36 Ur Leukocyte Esterase Negative (NEGATIVE) 03/13/24 12:36 Urine RBC 0-2 /HPF (0-3) 03/13/24 12:36 Urine WBC 0-2 /HPF (0-5) 03/13/24 12:36 Ur Squamous Epith Cells Few /HPF (NEGATIVE) 03/13/24 12:36 Urine Bacteria Negative /HPF (NEGATIVE) 03/13/24 12:36 Ur Culture Indicated? No/not indicated 03/13/24 12:36 SARS-CoV-2 (PCR) Negative (NEGATIVE) 03/13/24 11:29 Influenza Type A (PCR) Negative (NEGATIVE) 03/13/24 11:29 Influenza Type B (PCR) Negative (NEGATIVE) 03/13/24 11:29 RSV (PCR) Negative (NEGATIVE) 03/13/24 11:29 Plan (1) Hypotension: Status: Acute Qualifiers: Hypotension type: idiopathic hypotension Qualified Code(s): I95.0 - Idiopathic hypotension (2) Atrial fibrillation with RVR: Status: Acute (3) Acute exacerbation of chronic obstructive pulmonary disease: Status: Acute (4) Hypoxemia: Status: Acute (5) Pneumonia: Status: Acute Qualifiers: Pneumonia type: due to unspecified organism Laterality: left Lung location: upper lobe of lung Qualified Code(s): J18.9 - Pneumonia, unspecified organism (6) Anemia: Status: Chronic Qualifiers: Anemia type: unspecified type Qualified Code(s): D64.9 - Anemia, unspecified
[2024-03-15] MEDS: ZOSYN VIAL 3.375 GRAMS 3.375 G in NS 100 ML IV 100 ML IV SCH (12:48)
[2024-03-15] MEDS: TOPROL XL PO SCH (13:00)
[2024-03-15] MEDS: SOLU-Medrol 40 MG VIAL IVP ONE (13:09)
[2024-03-15] MEDS: TYLENOL 325 MG TAB PO PRN (13:37)
[2024-03-15] MEDS: RESTORIL CAP 15 MG PO PRN (21:11)
[2024-03-16 05:53] LABS: BASOPHILS % (AUTO) 0.1 % (0.2-1.0); HEMATOCRIT 27.8 % (36.0-47.0); HEMOGLOBIN 9.1 g/dL (12.0-16.0); LYMPHOCYTES # (AUTO) 0.2 X10^3/uL (1.3-2.9); LYMPHOCYTES % (AUTO) 2.8 % (21.0-51.0); MEAN CORPUSCULAR HEMOGLOBIN 26.2 pg (27.0-34.0); MEAN CORPUSCULAR HGB CONC 32.8 g/dL (33.0-35.0); MEAN CORPUSCULAR VOLUME 79.9 fL (80.0-100.0); MEAN PLATELET VOLUME 8.1 fL (7.4-11.0); MONOCYTES # (AUTO) 0.3 x10^3/uL (0.3-0.8); MONOCYTES % (AUTO) 3.8 % (0.0-13.0); NEUTROPHILS # (AUTO) 7.2 x10^3/uL (2.2-4.8); NEUTROPHILS % (AUTO) 93.3 % (42.0-75.0); PLATELET COUNT 153 X10^3/uL (150.0-450.0); RED BLOOD COUNT 3.48 X10^6/uL (3.5-5.4); RED CELL DISTRIBUTION WIDTH 24.5 % (11.6-16.5); WHITE BLOOD COUNT 7.7 X10^3/uL (3.6-10.0)
[2024-03-16 06:22] LABS: ALANINE AMINOTRANSFERASE 42 Units/L (12-78); ALBUMIN 2.1 g/dL (3.4-5.0); ALKALINE PHOSPHATASE 140 Units/L (46-116); ASPARTATE AMINO TRANSFERASE 37 Units/L (15-37); BLOOD UREA NITROGEN 13 mg/dL (7-18); CALCIUM 7.4 mg/dL (8.5-10.1); CARBON DIOXIDE 27.4 mmol/L (21-32); CHLORIDE 102 mmol/L (98-107); COR CA(FOR HYPOALB) 8.9 mg/dL (8.5-10.1); COR NA(FOR HYPERGLY) 138 mmol/L (136-145); CREATININE 0.79 mg/dL (0.55-1.02); GLUCOSE 126 mg/dL (65-99); SODIUM 137 mmol/L (136-145); TOTAL PROTEIN 5.4 g/dL (6.4-8.2); eGFR NON BLACK RACES > 60 (>60)
[2024-03-16 06:59] LABS: BAND NEUTROPHILS % 1 % (0-10)
[2024-03-16 07:00] LABS: ANISOCYTOSIS 3+; HYPOCHROMASIA SLIGHT; MICROCYTOSIS SLIGHT; PLATELET MORPHOLOGY COMMENT NORMAL (NORMAL)
--- NOTE | 2024-03-16 09:56 | RAD ---
EXAM: Portable AP chest HISTORY: Pneumonia COMPARISON: 03/15/2024 FINDINGS: Similar extent and distribution of asymmetric pneumonia, left greater than right. Interval developm ent of retrocardiac opacity obscuring the diaphragm and costophrenic angle. IMPRESSION: Persistent pneumonia. Increasing density left base consistent with additional developing airspace p rocess in the left lower lobe and small left pleural effusion. THIS IS AN ELECTRONICALLY VERIFIED FINAL REPORT 03/16/2024 9:52 AM - Electronically signed by Tucker Arvizu MD
--- NOTE | 2024-03-16 11:04 | PCM.PROG ---
Progress Note Progress Note for Day of Date of Exam: 03/16/24 Subjective Subjective: Patient seen at bedside, no acute events overnight. She is feeling better today, cough and SOB has improved. Her BP is better, 102/56. She remains on IV antibiotics and nebs. Labs/imaging reviewed: -WBC 7.7 Hgb 9.1 K 4.0 BUN/Cr 13/0.79 -Sputum Cx: no growth -Blood Cx neg -CXR: progression of KLEVER pneumonia Plan: Continue hydration, monitor BP. Hold lasix and other anti-hypertensives. Continue current dose of metoprolol succinate. Wean O2 as tolerated. Continue nebs and IS. Continue azithromycin and zosyn. Follow pending cultures. Continue home medications. Replace electrolytes prn. Ambulate prn. Monitor AM labs/imaging. Past Medical Family Social History Allergies: Allergies No Known Drug Allergies Allergy (Verified 03/13/24 11:41) Vital Signs and I&O's Vital Signs: Vital Signs Temperature 98.0 F Temperature 98.1 F Pulse Rate [Apical] 57 Pulse Rate [Apical] 90 Pulse Rate 104 Respiratory Rate 18 Respiratory Rate 18 Respiratory Rate 17 Blood Pressure [Right Arm] 102/56 Blood Pressure [Right Arm] 99/56 O2 Sat by Pulse Oximetry 99 O2 Sat by Pulse Oximetry 100 O2 Sat by Pulse Oximetry 92 Intake and Output: Intake & Output 03/13/24 03/14/24 03/15/24 03/16/24 23:59 23:59 23:59 23:59 Intake Total 987 / 987 2212 / 2212 620 / 620 Balance 987 / 987 2212 / 2212 620 / 620 Physical Exam Oriented: Normal Eyes: Normal Ear: Normal Nose: Normal Throat: Dry Respiratory: Generalized and Diminished Cardiovascular: Normal Auscultation: Bowel Sounds: Normal Palpation: Normal Tenderness: Normal Skin: Decreased Turgur Psychiatric: Normal Mood Description: Calm Affect: Normal Speech Pattern: Clear and Appropriate Laboratory and Diagnostics 03/16/24 05:29 03/16/24 05:29 Labs: 03/14/24 16:45 Sputum - Expectorated Sputum Sputum Culture - Preliminary 03/14/24 16:45 Sputum - Expectorated Sputum - Final 03/13/24 11:25 Blood Blood Culture - Preliminary 03/13/24 11:20 Blood Blood Culture - Preliminary Laboratory WBC 7.7 X10^3/uL (3.6-10.0) 03/16/24 05:29 RBC 3.48 X10^6/uL (3.5-5.4) L 03/16/24 05:29 Hgb 9.1 g/dL (12.0-16.0) L 03/16/24 05:29 Hct 27.8 % (36.0-47.0) L 03/16/24 05:29 MCV 79.9 fL (80.0-100.0) L 03/16/24 05:29 MCH 26.2 pg (27.0-34.0) L 03/16/24 05:29 MCHC 32.8 g/dL (33.0-35.0) L 03/16/24 05:29 RDW 24.5 % (11.6-16.5) H 03/16/24 05:29 Plt Count 153 X10^3/uL (150.0-450.0) 03/16/24 05:29 Plt Count Comment Adequate (ADEQUATE) 03/16/24 05:29 MPV 8.1 fL (7.4-11.0) 03/16/24 05:29 Neut % (Auto) 93.3 % (42.0-75.0) H 03/16/24 05:29 Lymph % (Auto) 2.8 % (21.0-51.0) L 03/16/24 05:29 [place] % (Auto) 3.8 % (0.0-13.0) 03/16/24 05:29 Eos % (Auto) 0.0 % (0.9-2.9) L 03/16/24 05:29 Baso % (Auto) 0.1 % (0.2-1.0) L 03/16/24 05:29 Neut # (Auto) 7.2 x10^3/uL (2.2-4.8) H 03/16/24 05:29 Lymph # (Auto) 0.2 X10^3/uL (1.3-2.9) L 03/16/24 05:29 [place] # (Auto) 0.3 x10^3/uL (0.3-0.8) 03/16/24 05:29 Eos # (Auto) 0.0 x10^3/uL (0.0-0.2) 03/16/24 05:29 Baso # (Auto) 0.0 X10^3/uL (0.0-0.1) 03/16/24 05:29 Absolute Nucleated RBC 0.0 /100WBC 03/16/24 05:29 Total Counted 100 03/16/24 05:29 Neutrophils % (Manual) 95 % (39-76) H 03/16/24 05:29 Band Neutrophils % 1 % (0-10) 03/16/24 05:29 Lymphocytes % (Manual) 2 % (13-43) L 03/16/24 05:29 Monocytes % (Manual) 2 % (4-9) L 03/16/24 05:29 Plt Morphology Comment Normal (NORMAL) 03/16/24 05:29 RBC Morphology Abnormal (NORMAL) A 03/16/24 05:29 Hypochromasia Slight A 03/16/24 05:29 Anisocytosis 3+ A 03/16/24 05:29 Microcytosis Slight A 03/16/24 05:29 PT 16.2 SECONDS (11.8-14.3) 03/13/24 11:20 INR Target Range - 03/13/24 11:20 INR 1.33 (0.8-1.3) H 03/13/24 11:20 APTT 29.3 SECONDS (22.9-36.5) 03/13/24 11:20 PTT Comment - 03/13/24 11:20 Sample Site [facility] 03/14/24 09:44 ABG pH 7.400 (7.35-7.45) 03/14/24 09:44 ABG pCO2 37.0 mmHg (35.0-45.0) 03/14/24 09:44 ABG pO2 55.0 mmHg (80.0-100.0) L 03/14/24 09:44 ABG HCO3 22.9 mmol/L (22-26) 03/14/24 09:44 ABG O2 Saturation 88.0 % (90-100) L 03/14/24 09:44 ABG Base Excess -1.6 mmol/L (-2.0-2.0) 03/14/24 09:44 Eugenio Test N/a 03/14/24 09:44 A-a Gradient 48.0 mmHg 03/14/24 09:44 FiO2 21.0 03/14/24 09:44 Blood Gas Comments Pt ajay well elj cdn 03/14/24 09:44 Sodium 137 mmol/L (136-145) 03/16/24 05:29 Corrected Sodium 138 mmol/L (136-145) 03/16/24 05:29 Potassium 4.0 mmol/L (3.5-5.1) 03/16/24 05:29 Chloride 102 mmol/L (98-107) 03/16/24 05:29 Carbon Dioxide 27.4 mmol/L (21-32) 03/16/24 05:29 BUN 13 mg/dL (7-18) 03/16/24 05:29 Creatinine 0.79 mg/dL (0.55-1.02) 03/16/24 05:29 Est GFR (MDRD) Af Amer > 60 (>60) 03/16/24 05:29 Est GFR (MDRD) Non-Af > 60 (>60) 03/16/24 05:29 Glucose 126 mg/dL (65-99) H 03/16/24 05:29 Lactic Acid 0.9 mmol/L (0.4-2.0) 03/13/24 13:24 Calcium 7.4 mg/dL (8.5-10.1) L 03/16/24 05:29 Corrected Calcium 8.9 mg/dL (8.5-10.1) 03/16/24 05:29 Magnesium 2.6 mg/dL (2.0-2.9) 03/14/24 04:34 Total Bilirubin 1.10 mg/dL (0.2-1.0) H 03/16/24 05:29 AST 37 Units/L (15-37) 03/16/24 05:29 ALT 42 Units/L (12-78) 03/16/24 05:29 Alkaline Phosphatase 140 Units/L (46-116) H 03/16/24 05:29 Creatine Kinase 48 Units/L (26-192) 03/13/24 13:24 Troponin I High Sens 66.2 ng/L (4.0-60.0) H* 03/13/24 13:24 B-Natriuretic Peptide 184 pg/mL (0-79) H 03/15/24 05:12 Total Protein 5.4 g/dL (6.4-8.2) L 03/16/24 05:29 Albumin 2.1 g/dL (3.4-5.0) L 03/16/24 05:29 Globulin 3.3 g/dL (2.5-4.5) 03/16/24 05:29 Albumin/Globulin Ratio 0.6 Ratio (1.1-2.1) L 03/16/24 05:29 Triglycerides 44 mg/dL (0-150) 03/14/24 04:34 Cholesterol 102 mg/dL (0-200) 03/14/24 04:34 LDL Cholesterol, Calc 23 mg/dL (0-100) 03/14/24 04:34 HDL Cholesterol 70 mg/dL (40-60) H 03/14/24 04:34 Cholesterol/HDL Ratio 1.5 (0.0-5.0) 03/14/24 04:34 Specimen Type Clean catch urine 03/13/24 12:36 Urine Color Straw (YELLOW) 03/13/24 12:36 Urine Appearance Clear (CLEAR) 03/13/24 12:36 Urine pH 6.0 (5.0 - 8.0) 03/13/24 12:36 Ur Specific [place] 1.010 (1.000-1.030) 03/13/24 12:36 Urine Protein 1+ (NEGATIVE) 03/13/24 12:36 Urine Glucose (UA) Negative (NEGATIVE) 03/13/24 12:36 Urine Ketones Negative (NEGATIVE) 03/13/24 12:36 Urine Blood Negative (NEGATIVE) 03/13/24 12:36 Urine Nitrite Negative (NEGATIVE) 03/13/24 12:36 Urine Bilirubin Negative (NEGATIVE) 03/13/24 12:36 Urine Urobilinogen Normal (NORMAL) 03/13/24 12:36 Ur Leukocyte Esterase Negative (NEGATIVE) 03/13/24 12:36 Urine RBC 0-2 /HPF (0-3) 03/13/24 12:36 Urine WBC 0-2 /HPF (0-5) 03/13/24 12:36 Ur Squamous Epith Cells Few /HPF (NEGATIVE) 03/13/24 12:36 Urine Bacteria Negative /HPF (NEGATIVE) 03/13/24 12:36 Ur Culture Indicated? No/not indicated 03/13/24 12:36 SARS-CoV-2 (PCR) Negative (NEGATIVE) 03/13/24 11:29 Influenza Type A (PCR) Negative (NEGATIVE) 03/13/24 11:29 Influenza Type B (PCR) Negative (NEGATIVE) 03/13/24 11:29 RSV (PCR) Negative (NEGATIVE) 03/13/24 11:29 Plan (1) Hypotension: Status: Acute Qualifiers: Hypotension type: idiopathic hypotension Qualified Code(s): I95.0 - Idiopathic hypotension (2) Atrial fibrillation with RVR: Status: Acute (3) Acute exacerbation of chronic obstructive pulmonary disease: Status: Acute (4) Hypoxemia: Status: Acute (5) Pneumonia: Status: Acute Qualifiers: Pneumonia type: due to unspecified organism Laterality: left Lung location: upper lobe of lung Qualified Code(s): J18.9 - Pneumonia, unspecified organism (6) Anemia: Status: Chronic Qualifiers: Anemia type: unspecified type Qualified Code(s): D64.9 - Anemia, unspecified
[2024-03-17 05:58] LABS: BASOPHILS % (AUTO) 0.1 % (0.2-1.0); EOSINOPHILS % (AUTO) 0.1 % (0.9-2.9); HEMATOCRIT 27.2 % (36.0-47.0); HEMOGLOBIN 8.8 g/dL (12.0-16.0); LYMPHOCYTES # (AUTO) 0.6 X10^3/uL (1.3-2.9); LYMPHOCYTES % (AUTO) 6.9 % (21.0-51.0); MEAN CORPUSCULAR HGB CONC 32.4 g/dL (33.0-35.0); MEAN CORPUSCULAR VOLUME 80.3 fL (80.0-100.0); MEAN PLATELET VOLUME 7.8 fL (7.4-11.0); MONOCYTES # (AUTO) 0.7 x10^3/uL (0.3-0.8); MONOCYTES % (AUTO) 7.5 % (0.0-13.0); NEUTROPHILS # (AUTO) 7.5 x10^3/uL (2.2-4.8); NEUTROPHILS % (AUTO) 85.4 % (42.0-75.0); PLATELET COUNT 195 X10^3/uL (150.0-450.0); RED BLOOD COUNT 3.39 X10^6/uL (3.5-5.4); RED CELL DISTRIBUTION WIDTH 24.8 % (11.6-16.5); WHITE BLOOD COUNT 8.8 X10^3/uL (3.6-10.0)
[2024-03-17 06:17] LABS: ALANINE AMINOTRANSFERASE 43 Units/L (12-78); ALKALINE PHOSPHATASE 132 Units/L (46-116); ASPARTATE AMINO TRANSFERASE 35 Units/L (15-37); BLOOD UREA NITROGEN 15 mg/dL (7-18); CALCIUM 7.9 mg/dL (8.5-10.1); CARBON DIOXIDE 29.3 mmol/L (21-32); CHLORIDE 106 mmol/L (98-107); COR CA(FOR HYPOALB) 9.5 mg/dL (8.5-10.1); COR NA(FOR HYPERGLY) 142 mmol/L (136-145); CREATININE 0.86 mg/dL (0.55-1.02); GLUCOSE 112 mg/dL (65-99); POTASSIUM 3.8 mmol/L (3.5-5.1); SODIUM 142 mmol/L (136-145); TOTAL PROTEIN 5.4 g/dL (6.4-8.2); eGFR NON BLACK RACES > 60 (>60)
[2024-03-17 06:40] LABS: ANISOCYTOSIS 3+; PLATELET MORPHOLOGY COMMENT NORMAL (NORMAL)
[2024-03-17] MEDS ORDERED: CONSULT PHARMACY - POTASSIUM & MAGNESIUM XX SCH (07:00)
[2024-03-17] MEDS: K-DUR TAB 20 MEQ PO SCH ×2 (08:57→11:03)
[2024-03-17] MEDS: LASIX IVP SCH (08:57)
--- NOTE | 2024-03-17 13:42 | RAD ---
EXAM: CHEST x-ray, 1 VIEW HISTORY: PNEUMONIA, CHF - COMPARISON: X-ray 03/16/2024 FINDINGS: Moderate left pleural effusion is increased from prior study. There is persistent left perihilar inf iltrate that is probably pneumonia. Probable COPD changes are present. Heart is normal in size. Pacemaker leads are directed towards the right atrial appendage and right v entricular apex. No pneumothorax is seen. IMPRESSION: Persistent left perihilar pneumonia is suspected with worsening moderate left pleural effusion. THIS IS AN ELECTRONICALLY VERIFIED FINAL REPORT 03/17/2024 1:39 PM - Electronically signed by Bijan Walker MD
[2024-03-17] MEDS: DIFLUCAN 200 MG IV PREMIX* 200 MG/100 ML BAG IV SCH (14:04)
[2024-03-17 23:53] VITALS: TEMP 98.1
[2024-03-18 06:10] LABS: BASOPHILS % (AUTO) 0.5 % (0.2-1.0); EOSINOPHILS # (AUTO) 0.1 x10^3/uL (0.0-0.2); EOSINOPHILS % (AUTO) 2.3 % (0.9-2.9); HEMATOCRIT 29.5 % (36.0-47.0); HEMOGLOBIN 9.5 g/dL (12.0-16.0); LYMPHOCYTES # (AUTO) 0.9 X10^3/uL (1.3-2.9); LYMPHOCYTES % (AUTO) 15.2 % (21.0-51.0); MEAN CORPUSCULAR HEMOGLOBIN 26.1 pg (27.0-34.0); MEAN CORPUSCULAR HGB CONC 32.3 g/dL (33.0-35.0); MEAN PLATELET VOLUME 7.6 fL (7.4-11.0); MONOCYTES # (AUTO) 0.9 x10^3/uL (0.3-0.8); MONOCYTES % (AUTO) 14.5 % (0.0-13.0); NEUTROPHILS % (AUTO) 67.5 % (42.0-75.0); PLATELET COUNT 224 X10^3/uL (150.0-450.0); RED BLOOD COUNT 3.64 X10^6/uL (3.5-5.4); RED CELL DISTRIBUTION WIDTH 24.7 % (11.6-16.5)
[2024-03-18 06:30] LABS: ALANINE AMINOTRANSFERASE 46 Units/L (12-78); ALBUMIN 1.9 g/dL (3.4-5.0); ALKALINE PHOSPHATASE 131 Units/L (46-116); ASPARTATE AMINO TRANSFERASE 35 Units/L (15-37); BLOOD UREA NITROGEN 15 mg/dL (7-18); CALCIUM 7.9 mg/dL (8.5-10.1); CARBON DIOXIDE 31.2 mmol/L (21-32); CHLORIDE 106 mmol/L (98-107); COR CA(FOR HYPOALB) 9.6 mg/dL (8.5-10.1); CREATININE 0.84 mg/dL (0.55-1.02); GLUCOSE 81 mg/dL (65-99); POTASSIUM 3.5 mmol/L (3.5-5.1); SODIUM 142 mmol/L (136-145); TOTAL PROTEIN 5.3 g/dL (6.4-8.2); eGFR NON BLACK RACES > 60 (>60)
[2024-03-18 06:48] LABS: PLATELET MORPHOLOGY COMMENT NORMAL (NORMAL)
[2024-03-18 06:49] LABS: ANISOCYTOSIS 3+; HYPOCHROMASIA SLIGHT
[2024-03-18] MEDS ORDERED: CONSULT PHARMACY - POTASSIUM & MAGNESIUM XX SCH (07:00)
--- NOTE | 2024-03-18 08:01 | RAD ---
EXAM:CHEST, 1 VIEWHISTORY:PNEUMONIA ;COMPARISON:03/17/2024FINDINGS:The trachea is midline. The cardiac silhouette is enlarged with a tortuous thoracic aorta. A pacing device overlying the left hemithorax is observed. Blunting of the left costophrenic angle consistent with pleural effusion and subsegmental atelectasis is observed. Improved aeration of the left upper lobe is noted. No focal consolidation or infiltrate of the right hemithorax can be identified. The bony thorax is unremarkable.IMPRESSION:Improved aeration of the left upper lobe with persistent left-sided pleural effusion.THIS IS AN ELECTRONICALLY VERIFIED FINAL [id number]/18/2024 7:57 AM - Electronically signed by Rao Bustos MD
[2024-03-18 08:18] VITALS: BP 149/76; PULSE 86; RESP 20
[2024-03-18 08:37] VITALS: O2SAT 97
[2024-03-18] MEDS ORDERED: K-DUR TAB 20 MEQ PO SCH (09:00)
[2024-03-18] MEDS: K-DUR TAB 20 MEQ PO SCH (10:07)
[2024-03-18] MEDS: LASIX IVP SCH (10:10)
== END 2024-03-18 12:20 | disposition home or self-care (01) | DRG 177 ==
LOC: ER 10:36 → MED/SURG 15:15
PROVIDERS: ADMIT Internal Medicine; ATTEND Internal Medicine
DX: Z95.0 Presence of cardiac pacemaker; D64.89 Other specified anemias; R94.31 Abnormal electrocardiogram [ECG] [EKG]; Z72.0 Tobacco use; R79.89 Other specified abnormal findings of blood chemistry; R06.02 Shortness of breath; J44.1 Chronic obstructive pulmonary disease with (acute) exacerbation; I48.91 Unspecified atrial fibrillation; J12.82 Pneumonia due to coronavirus disease 2019; B95.3 Streptococcus pneumoniae as the cause of diseases classified elsewhere; R09.02 Hypoxemia; I47.19 Other supraventricular tachycardia; I95.0 Idiopathic hypotension; U07.1 COVID-19; R53.1 Weakness; Z79.01 Long term (current) use of anticoagulants; R07.89 Other chest pain; R79.1 Abnormal coagulation profile